=== PATIENT | female | born 1945 | race Two or more races ===

== ENCOUNTER 2018-02-20 11:51 | Emergency (ER) | payer OTHER ==
[~2018-02-20] VITALS: Ht 157.5 cm; Wt 68.0 kg
== END 2018-02-20 16:28 | disposition home or self-care (01) ==
LOC: ER 11:51
DX: I16.0 Hypertensive urgency (principal); I10 Essential (primary) hypertension; R42 Dizziness and giddiness

== ENCOUNTER 2019-01-20 11:20 | Emergency (ER) | payer OTHER ==
[~2019-01-20] VITALS: Ht 157.5 cm; Wt 71.7 kg
== END 2019-01-20 16:08 | disposition home or self-care (01) ==
LOC: ER 11:20
DX: R20.0 Anesthesia of skin (principal); I87.2 Venous insufficiency (chronic) (peripheral)